=== PATIENT | female | born 1975 | race Caucasian/White ===

== ENCOUNTER 2021-06-30 02:02 | Emergency (ER) | payer OTHER, SELFPAY ==
--- NOTE | ~2021-06-30 | CT_ITS ---
EXAMINATION: CT abdomen pelvis w con DATE: 06/30/2021 04:58 INDICATION: Left-sided abdominal pain TECHNIQUE: Computed tomography (CT) of the abdomen and pelvis was performed with 100 cc Omnipaque 350 intravenous contrast. The dose-length product was 487.50 mGy-cm. Automated exposure control and iter ative reconstruction technique were employed. COMPARISON: None. FINDINGS: Lung bases are unremarkable. No significant pleural or pericardial effusion. The liver, spl een, pancreas, adrenal glands and kidneys are unremarkable. Gallbladder is present. There are air-flu id levels within nondilated small bowel, possibly ileus or enteritis. Small fat-containing umbilical hernia. No significant adnexal mass or fluid collection. No free air. No significant vascular abnorma lity. No lymphadenopathy. No acute osseous abnormality. IMPRESSION: 1. Nonspecific air-fluid levels in the small bowel, nondilated. Considerations include ileus and ente ritis. Reviewed, dictated and finalized at location B. GER MANUFACTURING IMPRESSION: 1. Nonspecific air-fluid levels in the small bowel, nondilated. Considerations include ileus and enteritis.
--- NOTE | ~2021-06-30 | US_ITS ---
EXAMINATION: US pelvic complete w TV DATE: 06/30/2021 06:12 INDICATION: Complex left ovarian mass with left flank pain radiating to the pelvis TECHNIQUE: Multiple transabdominal and endovaginal sonographic images of the pelvis were obtained. COMPARISON: None. FINDINGS: The uterus measures 5.4 x 2.1 x 2.5 cm. The endometrial complex measures 2 mm in thickness. The righ t ovary measures 1.8 x 1.0 x 1.2 cm. The left ovary measures 2.8 x 2.5 x 1.8 cm. There is heterogeneo us echogenicity within the left ovary. Arterial waveforms identified within both ovaries. There is no free fluid in the pelvis. IMPRESSION: 1. Osteolytic mild asymmetric enlargement and heterogeneous echogenicity of the left ovary with kuldeep l vascular flow on color Doppler. In the acute setting this could represent hemorrhagic or ruptured c yst. Would however recommend 6-12 week follow-up to exclude ovarian neoplasm. Reviewed, dictated and finalized at location A. T AND TABLE EDGER IMPRESSION: 1. Osteolytic mild asymmetric enlargement and heterogeneous echogenicity of the left ovary with normal vascular flow on color Doppler. In the acute setting th is could represent hemorrhagic or ruptured cyst. Would however recommend 6-12 w [place] follow-up to exclude ovarian neoplasm.
[2021-06-30 02:04] VITALS: BP 153/105; PULSE 68; RESP 20; TEMP 36.6; O2SAT 100
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
--- NOTE | 2021-06-30 02:29 | PC.NURSE ---
[facility]S CASTING OPERATOR HELPER SANE NURSE NOTIFIED AT THIS TIME.
--- NOTE | 2021-06-30 02:29 | PC.NURSE ---
CALL FOR HELP ACTIVATED AT THIS TIME.
--- NOTE | 2021-06-30 02:32 | ECG_ITS ---
Measurements Intervals [place] Rate: 55 P: 49 AK: 208 QRS: 97 QRSD: 110 T: 51 QT: 429 QTc: 412 Interpretive Statements SINUS BRADYCARDIA RIGHT AXIS DEVIATION BORDERLINE ECG Electronically Signed On 06-30-2021 5:49:25 CHRONOMETER ASSEMBLER by Twan Mar D.O.
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
[2021-06-30] MEDS: SODIUM CHLORIDE 0.9% IV 1,000 ML 999 ML IV CONT (03:02)
[2021-06-30 03:08] LABS: Basophils Percent Auto 0.5 % (0.2-1.2); Eosinophils Absolute Auto 0.2 K/mm3 (0-0.3); Eosinophils Percent Auto 2.5 % (0-4.4); Hematocrit 39.9 % (37.0-47.0); Hemoglobin 13.4 g/dL (12.0-15.0); Immature Granulocyte Absolute 0.02 K/mm3 (0.00-0.031); Immature Granulocyte Percent A 0.3 % (0-0.5); Lymphocytes Absolute Auto 2.56 K/mm3 (0.9-3.2); Lymphocytes Percent Auto 33.5 % (18.3-44.2); Mean Corpuscular HGB Conc 33.6 g/dl (32-36); Mean Corpuscular Hemoglobin 31.9 pg (26-34); Mean Platelet Volume 9.3 fl (7.4-10.4); Monocytes Absolute Auto 0.8 K/mm3 (0.1-0.6); Monocytes Percent Auto 10.7 % (2.6-8.5); Neutrophils Percent Auto 52.5 % (45.5-73.1); Platelet Count Result 268 k/mm3 (150-375); Red Cell Distribution Width 12.3 % (11.5-14.5); White Blood Count 7.7 K/mm3 (4.5-10.0)
[2021-06-30 03:18] LABS: Lactic Acid Reflex 0.6 mmol/L (0.7-2.1)
[2021-06-30 03:31] LABS: Add Urine Microscopic? YES; Appearance Urine Cloudy (Clear); Bacteria Urine Trace /hpf; Bilirubin Urine Negative (Negative); Blood Urine 1+ (Negative); Color Urine Yellow (Yellow); Glucose Urine UA Negative (Negative); Ketones Urine Negative (Negative); Leukocyte Esterase Ur 3+ LEU/UL (Negative); Mucus Urine Rare /lpf; Nitrate Urine Negative (Negative); Protein Urine Negative (Negative); Specific Grav Ur 1.015 (1.001-1.035); Squamous Epithelial Cell Urine Rare /hpf (Few); Urobilinogen Urine Negative mg/dL (<2.0); WBC Urine >75 /hpf
[2021-06-30 03:33] LABS: Barbiturate Screen Urine Negative (Negative); Benzodiazepines Screen Urine Negative (Negative)
[2021-06-30 03:35] LABS: Cannabinoid Screen Urine Positive (Negative); Cocaine Screen Urine Negative (Negative); Methadone Screen Urine Negative (Negative); Opiate Screen Urine Negative (Negative); Phencyclidine Screen Urine Negative (Negative)
[2021-06-30 03:40] VITALS: BP 138/78; PULSE 70; RESP 18; O2SAT 100
--- NOTE | 2021-06-30 03:40 | PC.NURSE ---
Sheridan - call for help advocate and MARY De La Rosa RN at bedside for pt eval. Discussed POC. Pt is alert and resting comfortably on stretcher.
--- NOTE | 2021-06-30 03:41 | PC.NURSE ---
Pt heard by helpdesk manager and EDP screaming in room. Threatened to pull out IV, crying, states No one is helping me. You said someone was coming. Take this out, I want to go somewhere they will do something for me. EDP discussed medication for pain control. Pt agreed to continue with POC. Pt asking when the DOVETAILER will arrive, this RN discussed unknown arrival, but that she did call to say that she was on her way. EDP ordered Morphine 4MG IVP. repeat labs sent w/ pt consent (green top re draw) IV fluids infusing
[2021-06-30] MEDS: MORPHINE SULFATE (*CRX) 4 MG/ML INJ IV PUSH ×3 (03:44→08:39)
[2021-06-30 04:11] LABS: Amphetamine Screen Urine Negative (Negative)
--- NOTE | 2021-06-30 04:27 | PC.NURSE ---
Called lab to ask about CT scan, states still awaiting lab results for kidney function. Labs state pending at this time, calling to request through put. Talked to Torri who states It takes awhile to collect, It'll be done soon.
[2021-06-30 04:36] LABS: Alanine Aminotransferase 26 U/L (4-35); Alkaline Phosphatase 106 U/L (38-126); Anion Gap 7 mmol/L (8-16); Aspartate Amino Transferase 39 U/L (14-36); Bilirubin,Total 0.5 mg/dL (0.2-1.3); Blood Urea Nitrogen 9 mg/dL (7-17); Calcium 8.4 mg/dL (8.4-10.2); Carbon Dioxide 25 mmol/L (22-30); Chloride 106 mmol/L (98-107); Estimated CRCL calculation 82 ml/min; Estimated Glomerular Filt Rate > 60; Glucose 94 mg/dL (65-110); Lipase 150 U/L (23-300); Potassium 3.5 mmol/L (3.4-5.0); Sodium 138 mmol/L (137-145)
--- NOTE | 2021-06-30 04:51 | PC.NURSE ---
patient is in CT scan via stretcher.
--- NOTE | 2021-06-30 04:53 | PC.NURSE ---
Patient back from CT and now in room.
--- NOTE | 2021-06-30 05:21 | PC.NURSE ---
Called phlebotomy and added PT/PTT and HIV screening to labs previously drawn, spoke to
--- NOTE | 2021-06-30 05:22 | PC.NURSE ---
Per EDP, pt is is to have transvag. u/s to r/o torsion, CRISTIANE Estrella notified of procedure and to delay pelvic exam.
--- NOTE | 2021-06-30 05:25 | PC.NURSE ---
EDP at bedside and updated patient about results and that he ordered ultrasound to rule out torsion. Patient updated at this time. .
[2021-06-30 05:34] LABS: Prothrombin Time 12.7 Seconds (11.1-14.7)
[2021-06-30 05:35] LABS: Partial Thromboplastin Time 36.7 SECONDS (22.3-36.8)
--- NOTE | 2021-06-30 05:53 | PC.NURSE ---
Patient went to ultrasound on stretcher and was covering face.
[2021-06-30 06:17] LABS: HIV 1/2 Ab P24 Ag Result Negative (Negative)
--- NOTE | 2021-06-30 07:22 | PC.NURSE ---
Assumed care of pt. at this time. report from ASIM Thompson and ASIM Mauricio
[2021-06-30 08:35] VITALS: BP 111/97; PULSE 78; RESP 14; O2SAT 98
--- NOTE | 2021-06-30 09:38 | PC.NURSE ---
Dr. Hanley aware pt. having increased pain.
[2021-06-30] MEDS: metroNIDAZOLE 250 MG TABLET 500 MG PO (09:54)
[2021-06-30] MEDS: EMTRICITABINE-TENOFOVIR 100 MG-150 MG TABLET 2 TAB PO (09:55)
[2021-06-30] MEDS: DOXYCYCLINE HYCLATE 100 MG TABLET PO (09:55)
[2021-06-30] MEDS: HEPATITIS B VIRUS VACCINE 10 MCG/0.5 ML SYRINGE 20 MCG IM (09:56)
[2021-06-30] MEDS: RALTEGRAVIR 400 MG TABLET PO (09:56)
--- NOTE | 2021-06-30 09:57 | PC.NURSE ---
Asked to go into room by Dr. Hanley. Pt. dressed standing near door; conversing with Chetan De La Rosa; making statements everyone is telling her what to do for 4 days, she wants to leave, [facility] ; Estrella convinced pt. to sit down and stay. At this time, pt. consents to TEXTILE COLORIST DYER consult.
[2021-06-30] MEDS: TETANUS,DIPHTHERIA,AC PERTUSSIS ADULT (0.5 ML) BOOSTRIX IM (09:59)
[2021-06-30] MEDS: cefTRIAXone 1 GM VIAL 0.5 GM IM (10:02)
--- NOTE | 2021-06-30 10:15 | PC.NURSE ---
pt.refusing further medications or blood draws.
[2021-06-30 10:52] LABS: Hematocrit 41.4 % (37.0-47.0); Hemoglobin 14.1 g/dL (12.0-15.0)
[2021-06-30] MEDS: PROMETHAZINE HCL 25 MG/ML AMPUL 12.5 MG IV PUSH (11:07)
[2021-06-30 11:11] VITALS: BP 136/84; PULSE 74; RESP 14; O2SAT 96
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
== END 2021-06-30 13:59 | disposition left against medical advice (07) ==
PROVIDERS: Emergency Medicine; Emergency Provider Emergency Medicine
DX: Z04.41 Encounter for examination and observation following alleged adult rape (principal); N83.202 Unspecified ovarian cyst, left side; N39.0 Urinary tract infection, site not specified; R10.9 Unspecified abdominal pain; M81.0 Age-related osteoporosis without current pathological fracture; Z23 Encounter for immunization
CPT/HCPCS: 36415; 74177; 76830; 76856; 80053; 80307; 81001; 81025; 83605; 83690; 85014; 85018; 85025; 85610; 85730; 86703; 87070; 87077; 87086; 87185; 87491; 87591; 87808; 90471; 90472; 90715; 90744; 93005; 96361; 96365; 96372; 96375; 96376; 99285; A9270; G0010; G0432; J0131; J0696; J2270; J2550; J7030; Q9967